=== PATIENT | female | born 1985 | race Caucasian/White ===

== ENCOUNTER 2016-07-31 16:02 | Inpatient (IN) | payer MEDICAID ==
[~2016-07-31] VITALS: Ht 160 cm; Wt 71.2 kg
[2016-07-31 16:45] VITALS: BP 117/66
[2016-07-31] MEDS ORDERED: LEVOTHYROXINE0.05 MG PO (16:55)
[2016-07-31] MEDS ORDERED: SEROQUEL300 MG PO (16:55)
[2016-07-31] MEDS ORDERED: CEPHALEXIN500 M1 PO (16:55)
[2016-07-31 17:35] LABS: BASO # 0.1 10*3/uL (0.0-0.1); BASO % 0.7 % (0.0-1.0); EOS # 0.3 10*3/uL (0.0-0.4); EOS % 3.2 % (1.0-4.0); HEMATOCRIT 41.8 % (37.0-47.0); HEMOGLOBIN 13.9 g/dl (12.0-16.0); LYMPH % 24.6 % (27.0-41.0); MEAN CELL VOLUME 90.9 fl (81.0-99.0); MEAN CORPUSCULAR HGB 30.2 pg (27.0-31.0); MEAN CORPUSCULAR HGB CONC 33.3 g/dl (33.0-37.0); MEAN PLATELET VOLUME 10.5 fl (9.6-12.3); MONO # 0.6 10*3/uL (0.1-1.0); MONO % 7.1 % (3.0-9.0); NEUT # 5.3 10*3/uL (2.3-7.9); NEUT % 64.2 % (47.0-73.0); PLATELET COUNT AUTOMATED 295 10*3/uL (130-400); RED CELL DISTRI WIDTH 19.1 % (0-14.5); WHITE BLOOD COUNT 8.2 10*3/uL (4.8-10.8)
[2016-07-31 17:42] LABS: BILIRUBIN NEGATIVE (NEGATIVE); BLOOD NEGATIVE (NEGATIVE); CLARITY SL CLOUDY (CLEAR); COLOR YELLOW (YELLOW); GLUCOSE NEGATIVE (NEGATIVE); KETONE 1+ (NEGATIVE); LEUKO ESTERASE NEGATIVE (NEGATIVE); NITRITE NEGATIVE (NEGATIVE); PH 8.5 (5.0-9.0); PROTEIN TRACE (NEGATIVE); SPECIFIC GRAVITY 1.015 (1.005-1.030)
[2016-07-31 17:44] LABS: PROTHROMBIN TIME 10.7 SECONDS (9.0-12.4)
[2016-07-31 17:51] LABS: URINE AMPHETAMINES < 1000 (1000ng/ml); URINE BARBITURATES < 200 (200ng/ml); URINE COCAINE < 300 (300ng/ml)
[2016-07-31 17:55] LABS: ALKALINE PHOSPHATASE 83 U/L (45-117); BILIRUBIN, TOTAL 0.2 mg/dl (0.2-1.0); BUN 7 mg/dl (7-24); CARBON DIOXIDE 31 mmol/L (21-32); CHLORIDE 104 mmol/L (98-107); EST GLOM FILT AFRICAN AMERICAN > 60 ml/min; GLUCOSE 86 mg/dL (65-99); POTASSIUM 3.3 mmol/L (3.5-5.1); SGOT/AST 12 IU/L (3-35); SGPT/ALT 17 U/L (12-78); SODIUM 144 mmol/L (136-145); TOTAL PROTEIN 6.5 gm/dL (6.4-8.2)
[2016-07-31 17:55] LABS: RBC 0-2 rbc/hpf (0-2); URINE REFLEX COMMENT NO (NO)
[2016-07-31 20:51] VITALS: BP 112/61
[2016-08-01] VITALS: BP 106/62
[2016-08-01 04:00] VITALS: BP 94/58
[2016-08-01 08:00] VITALS: BP 81/42
[2016-08-01 12:17] VITALS: BP 96/56
[2016-08-01 17:05] VITALS: BP 111/54
[2016-08-01 20:49] VITALS: BP 98/66
[2016-08-02] VITALS: BP 92/44
[2016-08-02 07:08] LABS: HEPATITIS C VIRUS ANTIBODY <0.1 s/co (0.0-0.9)
[2016-08-02 08:00] VITALS: BP 90/48
[2016-08-02 08:11] LABS: HIV 1+2 AB + HIV1 P24 AG Non Reactive (Non Reactive)
[2016-08-02 12:00] VITALS: BP 91/53
[2016-08-02 16:00] VITALS: BP 98/51
[2016-08-02 20:00] VITALS: BP 106/62
[2016-08-03] VITALS: BP 94/58
[2016-08-03 16:00] VITALS: BP 88/55
[2016-08-03 20:00] VITALS: BP 90/53
[2016-08-04] VITALS: BP 90/45
[2016-08-04 08:00] VITALS: BP 94/46
[2016-08-04] MEDS ORDERED: ZOFRAN 4 MG ED2 TAB PO (11:24)
[2016-08-04] MEDS ORDERED: CARBIDOPA/LEVOD1 TA1 PO (11:24)
[2016-08-04] MEDS ORDERED: ATARAX,VISTARIL50 MG PO (11:24)
== END 2016-08-04 12:24 | disposition home or self-care (01) | DRG 896 ==
LOC: 5E 16:02
PROVIDERS: Internal Medicine
DX: F11.23 Opioid dependence with withdrawal (principal); E43 Unspecified severe protein-calorie malnutrition; N39.0 Urinary tract infection, site not specified; F10.232 Alcohol dependence with withdrawal with perceptual disturbance; J45.909 Unspecified asthma, uncomplicated; E03.9 Hypothyroidism, unspecified; F12.90 Cannabis use, unspecified, uncomplicated; N20.0 Calculus of kidney; R00.0 Tachycardia, unspecified; E87.6 Hypokalemia; Z98.891 History of uterine scar from previous surgery; Z98.51 Tubal ligation status; Z80.8 Family history of malignant neoplasm of other organs or systems; Z72.0 Tobacco use; Z68.27 Body mass index [BMI] 27.0-27.9, adult

== ENCOUNTER 2016-10-12 14:43 | Inpatient (IN) | payer OTHER ==
[~2016-10-12] VITALS: Ht 162.5 cm; Wt 64.6 kg
[~2016-10-12 14:43] MED LIST: ATARAX,VISTARIL50 MG PO; CARBIDOPA/LEVOD1 TA1 PO; CEPHALEXIN500 M1 PO; LEVOTHYROXINE0.05 MG PO; SEROQUEL300 MG PO; ZOFRAN 4 MG ED2 TAB PO
[2016-10-12 16:00] VITALS: BP 104/76
[2016-10-12] MEDS ORDERED: LEVOTHYROXIN0.075 MG PO (16:01)
[2016-10-12] MEDS ORDERED: MIRTAZAPINE45 M1 PO (16:02)
[2016-10-12] MEDS ORDERED: BUSPIRONE15 MG PO (16:03)
[2016-10-12] MEDS ORDERED: NEURONTIN800 MG PO (16:04)
[2016-10-12] MEDS ORDERED: SEROQUEL100 MG PO (16:07)
[2016-10-12 17:10] LABS: BASO # 0.1 10*3/uL (0.0-0.1); BASO % 0.8 % (0.0-1.0); EOS # 0.3 10*3/uL (0.0-0.4); EOS % 2.9 % (1.0-4.0); HEMATOCRIT 44.9 % (37.0-47.0); HEMOGLOBIN 14.3 g/dl (12.0-16.0); IG # 0.1 10*3/uL (0.0-0.1); LYMPH # 2.5 10*3/uL (1.3-4.4); LYMPH % 25.6 % (27.0-41.0); MEAN CELL VOLUME 91.6 fl (81.0-99.0); MEAN CORPUSCULAR HGB 29.2 pg (27.0-31.0); MEAN CORPUSCULAR HGB CONC 31.8 g/dl (33.0-37.0); MEAN PLATELET VOLUME 10.2 fl (9.6-12.3); MONO # 0.5 10*3/uL (0.1-1.0); MONO % 4.9 % (3.0-9.0); NEUT # 6.4 10*3/uL (2.3-7.9); NEUT % 65.3 % (47.0-73.0); PLATELET COUNT AUTOMATED 442 10*3/uL (130-400); RED CELL DISTRI WIDTH 15.3 % (0-14.5); WHITE BLOOD COUNT 9.8 10*3/uL (4.8-10.8)
[2016-10-12 17:18] LABS: PROTHROMBIN TIME 10.8 SECONDS (9.0-12.4)
[2016-10-12 17:25] LABS: ALBUMIN 2.5 gm/dl (3.1-4.5); ALKALINE PHOSPHATASE 90 U/L (45-117); BILIRUBIN, TOTAL 0.2 mg/dl (0.2-1.0); BUN 5 mg/dl (7-24); CARBON DIOXIDE 30 mmol/L (21-32); CHLORIDE 102 mmol/L (98-107); EST GLOM FILT AFRICAN AMERICAN > 60 ml/min; GLUCOSE 77 mg/dL (65-99); POTASSIUM 3.5 mmol/L (3.5-5.1); SGOT/AST 14 IU/L (3-35); SGPT/ALT 11 U/L (12-78); SODIUM 141 mmol/L (136-145); TOTAL PROTEIN 6.5 gm/dL (6.4-8.2)
[2016-10-12 17:34] LABS: BILIRUBIN 1+ (NEGATIVE); BLOOD NEGATIVE (NEGATIVE); CLARITY CLOUDY (CLEAR); COLOR YELLOW (YELLOW); GLUCOSE NEGATIVE (NEGATIVE); KETONE TRACE (NEGATIVE); LEUKO ESTERASE NEGATIVE (NEGATIVE); NITRITE POSITIVE (NEGATIVE); PROTEIN TRACE (NEGATIVE); SPECIFIC GRAVITY >= 1.030 (1.005-1.030); UROBILINOGEN 0.2 E.U./dl (0.2-1.0)
[2016-10-12 17:41] LABS: BACTERIA 4+; EPITHELIAL CELLS TNTC
[2016-10-12 17:42] LABS: CALCIUM OXALATE CRYSTALS 1+; RBC 0-2 rbc/hpf (0-2); URINE REFLEX COMMENT YES (NO)
[2016-10-12 17:49] LABS: URINE AMPHETAMINES < 1000 (1000ng/ml); URINE BARBITURATES < 200 (200ng/ml); URINE COCAINE < 300 (300ng/ml)
[2016-10-12 20:00] VITALS: BP 99/61
[2016-10-13] VITALS: BP 95/54
[2016-10-13 04:30] VITALS: BP 99/61
[2016-10-13 08:00] VITALS: BP 93/57
[2016-10-13 12:00] VITALS: BP 107/55
[2016-10-13 18:10] VITALS: BP 101/62
== END 2016-10-13 20:00 | disposition left against medical advice (07) | DRG 894 ==
LOC: 4E 14:43 → ICCU 10-13 17:38
PROVIDERS: Internal Medicine
DX: F11.23 Opioid dependence with withdrawal (principal); E43 Unspecified severe protein-calorie malnutrition; F12.90 Cannabis use, unspecified, uncomplicated; E03.9 Hypothyroidism, unspecified; J45.909 Unspecified asthma, uncomplicated; F17.210 Nicotine dependence, cigarettes, uncomplicated; F10.230 Alcohol dependence with withdrawal, uncomplicated; B96.89 Other specified bacterial agents as the cause of diseases classified elsewhere; H57.8 Other specified disorders of eye and adnexa; Z98.51 Tubal ligation status; Z53.21 Procedure and treatment not carried out due to patient leaving prior to being seen by health care provider; Z87.440 Personal history of urinary (tract) infections; Z87.442 Personal history of urinary calculi; Z80.8 Family history of malignant neoplasm of other organs or systems; Z79.899 Other long term (current) drug therapy; Z68.24 Body mass index [BMI] 24.0-24.9, adult

== ENCOUNTER 2018-02-19 20:16 | Inpatient (IN) | payer OTHER ==
[~2018-02-19] VITALS: Ht 162.5 cm; Wt 56.0 kg
[~2018-02-19 20:16] MED LIST changes: +BUSPIRONE15 MG PO; +LEVOTHYROXIN0.075 MG PO; +MIRTAZAPINE45 M1 PO; +NEURONTIN800 MG PO; +SEROQUEL100 MG PO
[2018-02-19 20:18] VITALS: BP 106/61
[2018-02-19 20:48] LABS: BASO # 0.1 10*3/uL (0.0-0.1); BASO % 0.3 % (0.0-1.0); EOS # 0.1 10*3/uL (0.0-0.4); EOS % 0.5 % (1.0-4.0); HEMATOCRIT 36.9 % (37.0-47.0); HEMOGLOBIN 12.1 g/dl (12.0-16.0); LYMPH # 1.2 10*3/uL (1.3-4.4); MEAN CELL VOLUME 84.4 fl (81.0-99.0); MEAN CORPUSCULAR HGB 27.7 pg (27.0-31.0); MEAN CORPUSCULAR HGB CONC 32.8 g/dl (33.0-37.0); MEAN PLATELET VOLUME 8.8 fl (9.6-12.3); MONO # 1.2 10*3/uL (0.1-1.0); MONO % 5.9 % (3.0-9.0); NEUT # 17.8 10*3/uL (2.3-7.9); NEUT % 86.9 % (47.0-73.0); PLATELET COUNT AUTOMATED 284 10*3/uL (130-400); RED BLOOD COUNT 4.37 10*6/uL (4.10-5.10); RED CELL DISTRI WIDTH 16.6 % (0-14.5); WHITE BLOOD COUNT 20.5 10*3/uL (4.8-10.8)
[2018-02-19 20:50] LABS: BILIRUBIN NEGATIVE (NEGATIVE); BLOOD NEGATIVE (NEGATIVE); CLARITY SL CLOUDY (CLEAR); COLOR YELLOW (YELLOW); GLUCOSE NEGATIVE (NEGATIVE); KETONE NEGATIVE (NEGATIVE); LEUKO ESTERASE NEGATIVE (NEGATIVE); NITRITE NEGATIVE (NEGATIVE); UROBILINOGEN 0.2 E.U./dl (0.2-1.0)
[2018-02-19 20:59] LABS: ALBUMIN 3.1 gm/dl (3.1-4.5); ALKALINE PHOSPHATASE 98 U/L (45-117); BUN 8 mg/dl (7-24); CHLORIDE 102 mmol/L (98-107); CREATININE 0.69 mg/dL (0.55-1.02); POTASSIUM 3.1 mmol/L (3.5-5.1); SGOT/AST 21 IU/L (3-35); SGPT/ALT 13 U/L (12-78); SODIUM 136 mmol/L (136-145); TOTAL PROTEIN 7.4 gm/dL (6.4-8.2)
[2018-02-19 21:00] LABS: BACTERIA 1+; EPITHELIAL CELLS TNTC
[2018-02-19 21:01] LABS: ACETAMINOPHEN (TYLENOL) < 5.0 ug/ml (10-30); ETHYL ALCOHOL < 3.0 mg/dl (<3)
[2018-02-19 21:06] LABS: URINE AMPHETAMINES < 1000 (1000ng/ml); URINE BARBITURATES < 200 (200ng/ml); URINE BENZODIAZEPINES < 200 (200ng/ml); URINE CANNABINOIDS (THC) < 50 (50ng/ml); URINE COCAINE < 300 (300ng/ml); URINE METHADONE < 300 (300ng/ml); URINE OPIATES > 300 (300ng/ml)
[2018-02-19 21:12] VITALS: BP 99/65
[2018-02-19 21:16] LABS: URINE PHENCYCLIDINE < 25 (25ng/ml)
[2018-02-19] MEDS ORDERED: NEURONTIN300 MG PO (21:28)
[2018-02-19] MEDS ORDERED: SEROQUEL400 M1 PO (21:30)
[2018-02-19] MEDS ORDERED: VISTARIL50 MG PO (21:31)
[2018-02-20] VITALS (7 sets, daily range): BP systolic 84–110; BP diastolic 50–58
[2018-02-21 06:36] VITALS: BP 90/58
[2018-02-21 13:18] VITALS: BP 83/49
[2018-02-21 16:00] VITALS: BP 97/50
[2018-04-13] MEDS ORDERED: SEPTDS PO (09:15)
== END 2018-02-21 21:45 | disposition left against medical advice (07) | DRG 894 ==
LOC: ED 20:16 → EDHOLD 20:29 → 5E 20:29
PROVIDERS: Internal Medicine; Nurse Practitioner Family
DX: F11.23 Opioid dependence with withdrawal (principal); R65.10 Systemic inflammatory response syndrome (SIRS) of non-infectious origin without acute organ dysfunction; E44.0 Moderate protein-calorie malnutrition; Z53.21 Procedure and treatment not carried out due to patient leaving prior to being seen by health care provider; F41.9 Anxiety disorder, unspecified; F17.210 Nicotine dependence, cigarettes, uncomplicated; E03.9 Hypothyroidism, unspecified; G25.81 Restless legs syndrome; E87.6 Hypokalemia; R73.9 Hyperglycemia, unspecified; Z71.6 Tobacco abuse counseling; Z68.21 Body mass index [BMI] 21.0-21.9, adult; Z98.891 History of uterine scar from previous surgery; Z98.51 Tubal ligation status; Z80.8 Family history of malignant neoplasm of other organs or systems; Z79.899 Other long term (current) drug therapy

== ENCOUNTER 2019-07-06 12:46 | Inpatient (IN) | payer OTHER ==
[~2019-07-06] VITALS: Ht 162.5 cm; Wt 64.6 kg
[~2019-07-06 12:46] MED LIST changes: +NEURONTIN300 MG PO; +SEPTDS PO; +SEROQUEL400 M1 PO; +VISTARIL50 MG PO
[2019-07-06 13:30] VITALS: BP 97/58
[2019-07-06] MEDS ORDERED: REMERON15 M2 PO (14:02)
[2019-07-06] MEDS ORDERED: VISTARIL50 MG PO (14:02)
[2019-07-06 15:10] LABS: BASO # 0.1 10*3/uL (0.0-0.1); BASO % 0.6 % (0.0-1.0); EOS # 0.2 10*3/uL (0.0-0.4); EOS % 2.3 % (1.0-4.0); HEMATOCRIT 41.9 % (37.0-47.0); HEMOGLOBIN 13.3 g/dl (12.0-16.0); LYMPH % 23.2 % (27.0-41.0); MEAN CELL VOLUME 81.8 fl (81.0-99.0); MEAN CORPUSCULAR HGB CONC 31.7 g/dl (33.0-37.0); MEAN PLATELET VOLUME 10.7 fl (9.6-12.3); MONO # 0.5 10*3/uL (0.1-1.0); MONO % 6.3 % (3.0-9.0); NEUT # 5.8 10*3/uL (2.3-7.9); NEUT % 67.5 % (47.0-73.0); PLATELET COUNT AUTOMATED 281 10*3/uL (130-400); RED BLOOD COUNT 5.12 10*6/uL (4.10-5.10); RED CELL DISTRI WIDTH 17.3 % (0-14.5); WHITE BLOOD COUNT 8.6 10*3/uL (4.8-10.8)
[2019-07-06 15:50] LABS: ALKALINE PHOSPHATASE 54 U/L (45-117); BUN 6 mg/dl (7-24); CHLORIDE 106 mmol/L (98-107); CREATININE 0.61 mg/dL (0.55-1.02); POTASSIUM 3.2 mmol/L (3.5-5.1); SGOT/AST 26 IU/L (3-35); SGPT/ALT 22 U/L (12-78); SODIUM 138 mmol/L (136-145); TOTAL PROTEIN 6.7 gm/dL (6.4-8.2)
[2019-07-06 16:00] VITALS: BP 104/58
[2019-07-06 16:00] LABS: BETA-HCG, QUANT < 1.0 mIU/mL (1-3); ETHYL ALCOHOL < 3.0 mg/dl (<3)
[2019-07-06 16:30] LABS: BILIRUBIN 1+ (NEGATIVE); BLOOD NEGATIVE (NEGATIVE); CLARITY CLOUDY (CLEAR); COLOR YELLOW (YELLOW); GLUCOSE NEGATIVE (NEGATIVE); KETONE NEGATIVE (NEGATIVE); LEUKO ESTERASE 1+ (NEGATIVE); NITRITE NEGATIVE (NEGATIVE); PH 7.5 (5.0-9.0); SPECIFIC GRAVITY 1.015 (1.005-1.030); UROBILINOGEN 0.2 E.U./dl (0.2-1.0)
[2019-07-06 16:31] LABS: BACTERIA 3+; EPITHELIAL CELLS 16-20; MUCOUS 1+; WBC 21-30 wbc/hpf (0-5)
[2019-07-06 16:52] LABS: URINE AMPHETAMINES < 1000 (1000ng/ml); URINE BARBITURATES < 200 (200ng/ml); URINE BENZODIAZEPINES < 200 (200ng/ml); URINE CANNABINOIDS (THC) < 50 (50ng/ml); URINE COCAINE < 300 (300ng/ml); URINE METHADONE < 300 (300ng/ml); URINE OPIATES > 300 (300ng/ml)
[2019-07-06 16:53] LABS: URINE PHENCYCLIDINE < 25 (25ng/ml)
[2019-07-06 20:00] VITALS: BP 70/46
[2019-07-06 23:48] VITALS: BP 73/41
[2019-07-07] VITALS (8 sets, daily range): BP systolic 70–90; BP diastolic 25–53
[2019-07-08] VITALS: BP 79/43
[2019-07-08 09:36] VITALS: BP 89/41
[2019-07-08 16:00] VITALS: BP 81/47
== END 2019-07-08 16:39 | disposition left against medical advice (07) | DRG 770 ==
LOC: 5E 12:46
PROVIDERS: Internal Medicine; ADMIT Internal Medicine
DX: F11.23 Opioid dependence with withdrawal (principal); F17.210 Nicotine dependence, cigarettes, uncomplicated; F41.9 Anxiety disorder, unspecified; G25.81 Restless legs syndrome; R00.1 Bradycardia, unspecified; E87.6 Hypokalemia; Z53.29 Procedure and treatment not carried out because of patient's decision for other reasons; F32.9 Major depressive disorder, single episode, unspecified; E03.9 Hypothyroidism, unspecified; E44.0 Moderate protein-calorie malnutrition; Z71.6 Tobacco abuse counseling; Z87.442 Personal history of urinary calculi; Z68.24 Body mass index [BMI] 24.0-24.9, adult